=== PATIENT | female | born 1960 | race Caucasian/White ===

== ENCOUNTER 2023-03-22 11:05 | Outpatient (CLI) | payer BC, OTHER | END 2023-03-22 11:06 | disposition home or self-care (01) | LOC: BICMRI 11:05 | PROVIDERS: ATTEND Orthopaedic Surgery | DX: S43.432A Superior glenoid labrum lesion of left shoulder, initial encounter (principal); V87.7XXA Person injured in collision between other specified motor vehicles (traffic), initial encounter; M25.412 Effusion, left shoulder; M19.012 Primary osteoarthritis, left shoulder; R60.0 Localized edema ==